=== PATIENT | male | born 1960 | race Caucasian/White ===

== ENCOUNTER 2016-12-30 21:07 | Observation (INO) | payer OTHER ==
[~2016-12-30] VITALS: Ht 170.2 cm; Wt 79.7 kg
[~2016-12-30 21:07] MED LIST: ALBUTEROL SULF8.5 GM IH; ASCORBIC ACID500 M3 PO; ASPIR-LOW81 MG PO; ASPIRIN81 M1 PO; ATROVENT 00.5 MG/2.5 IH; Ascorbic Acid PO; BACTRIM,SEPT1 TABLET PO; CLEOCIN HCL300 MG PO; CLEOCIN300 MG PO; EFFEXOR25 MG PO; EFFIENT10 MG PO; Effient PO; JANUVIA25 M1 PO; KEFLEX500 MG PO; LISINOPRIL20 MG PO; LOPRESSOR50 MG PO; Lopressor PO; METHOCARBAMOL500 MG PO; MOBIC7.5 MG PO; MORGIDOX100 MG PO; MULTI VITAMIN1 EACH PO; MUPIROCIN15 GM TP; NABUMETONE500 MG PO; NAPROXEN500 MG PO; NIACIN 500 MG1 EACH PO; NIACIN ER500 MG PO; NIACIN500 M1 PO; NITROGLYCERIN0.4 MG SL; NITROSTAT0.4 MG SL; Naprosyn PO; Nitrostat,NitroQuick SL; PANTOPRAZOLE SO40 MG PO; PERCOCET 5/31 TABLET PO; PREDNISONE20 MG PO; PRILOSEC40 MG PO; PRINIVIL20 MG PO; PROTONIX40 MG PO; PROVENTIL,2.5 MG/3 M IH; Protonix PO; Proventil,Ventolin H IH; ROBITUSSIN AC,T10 ML PO; SIMVASTATIN20 MG PO; SIMVASTATIN80 MG PO; ST. JOSEPH ASPI81 MG PO; TESSALON PERLE100 MG PO; TRADJENTA5 MG PO; TRAMADOL HCL50 MG PO; TRIAMCINOLONE A15 GM TP; ULTRAM50 MG PO; VENTOLIN HFA18 GM IH; VITAMIN C PO; ZESTRIL,PRINIVI20 MG PO; ZESTRIL20 MG PO; ZESTRIL5 MG PO; ZITHROMAX Z-PA250 MG PO; ZITHROMAX250 MG PO; ZITHROMAX500 MG PO; ZOCOR40 MG PO; ZOCOR80 MG PO; ZOFRAN4 MG PO; Zocor PO
[2016-12-30 22:39] LABS: EOSINOPHIL (%) 1.7 % (0-5); EOSINOPHIL COUNT 0.2 K/uL (0-0.3); HEMATOCRIT 48.1 % (38.0-50.0); IMMATURE GRANULOCYTE (%) 0.5 % (0.0-0.7); IMMATURE GRANULOCYTE COUNT 0.1 K/uL; INSTRUMENT ABS NEUTROPHIL CT 6.2 K/uL; MCH 32.5 PG (29.0-34.0); MCHC 34.1 G/DL (30.0-36.0); MCV 95.2 FL (86-99); MEAN PLAT.VOLUME 10.8 uM^3 (9.0-12.4); MONOCYTE COUNT 0.8 K/uL (0-0.8); NEUTROPHIL (%) 66.6 % (45-76); NEUTROPHIL COUNT 6.2 K/uL (1.8-6.4); PLATELET COUNT 159 K/uL (156-360); RBC DIS.WIDTH-CV 12.4 % (11.8-14.6); RBC DIS.WIDTH-SD 43.4 % (39-53); RED BLOOD COUNT 5.05 M/uL (4.00-5.50); WHITE BLOOD COUNT 9.3 K/uL (4.1-10.2)
[2016-12-30 22:47] LABS: CHLORIDE 105 mEq/L (99-109); POTASSIUM 4.1 mEq/L (3.7-5.4); SODIUM 138 mEq/L (136-147)
[2016-12-30 22:49] LABS: GLUCOSE 117 mg/dL (70-99)
[2016-12-30 22:50] LABS: ANION GAP 8 MEQ/L (2-14)
[2016-12-30 22:52] LABS: GFR ESTIMATE (CALCULATED) > 59 mL/min/
[2016-12-30 22:53] LABS: UREA NITROGEN (BUN) 20 mg/dL (9-23)
[2016-12-30 22:59] LABS: TROP-I INTERPRETATION NEGATIVE; TROPONIN-I 0.01 ng/mL (0.0-0.30)
[2016-12-31] MEDS ORDERED: JARDIANCE25 MG PO (00:01)
[2016-12-31 01:34] VITALS: BP 133/83
[2016-12-31 04:52] VITALS: BP 153/80
[2016-12-31 05:59] LABS: TROP-I INTERPRETATION NEGATIVE; TROPONIN-I 0.02 ng/mL (0.0-0.30)
[2016-12-31 07:07] LABS: Estimated Average Glucose 240 mg/dL (70-123)
[2016-12-31 08:41] VITALS: BP 144/83
[2016-12-31] MEDS ORDERED: PROTONIX40 MG PO (11:04)
[2016-12-31 12:12] LABS: TROP-I INTERPRETATION NEGATIVE; TROPONIN-I 0.02 ng/mL (0.0-0.30)
== END 2016-12-31 12:42 | disposition home or self-care (01) ==
LOC: EME 21:07 → ENPENDDIS 12-31 → EDOF 12-31 00:21 → ENRESERV 12-31 00:23 → 5WEST 12-31 01:29
PROVIDERS: Emergency Medicine; Hospitalist
DX: R07.9 Chest pain, unspecified (principal); E11.65 Type 2 diabetes mellitus with hyperglycemia; I71.2 Thoracic aortic aneurysm, without rupture; I10 Essential (primary) hypertension; I25.10 Atherosclerotic heart disease of native coronary artery without angina pectoris; Z95.5 Presence of coronary angioplasty implant and graft; E78.5 Hyperlipidemia, unspecified; Q23.1 Congenital insufficiency of aortic valve; J44.9 Chronic obstructive pulmonary disease, unspecified; K21.9 Gastro-esophageal reflux disease without esophagitis; F41.9 Anxiety disorder, unspecified; F32.9 Major depressive disorder, single episode, unspecified; Z87.891 Personal history of nicotine dependence; Z79.82 Long term (current) use of aspirin; Z82.49 Family history of ischemic heart disease and other diseases of the circulatory system; Z83.3 Family history of diabetes mellitus; Z88.0 Allergy status to penicillin
CPT/HCPCS: 71020; 80048; 82948; 83036; 84484; 85025; 93005; 93306; 99281; 99285; G0378

== ENCOUNTER 2017-07-26 19:07 | Emergency (ER) | payer OTHER ==
[~2017-07-26] VITALS: Ht 170.2 cm; Wt 82.1 kg
[~2017-07-26 19:07] MED LIST changes: +JARDIANCE25 MG PO
[2017-07-26 20:00] LABS: HEMATOCRIT 48.4 % (38.0-50.0); HEMOGLOBIN 17.2 G/DL (12.5-16.6); MCH 33.9 PG (29.0-34.0); MCHC 35.5 G/DL (30.0-36.0); MCV 95.5 FL (86-99); PLATELET COUNT 134 K/uL (156-360); RBC DIS.WIDTH-CV 12.4 % (11.8-14.6); RBC DIS.WIDTH-SD 43.8 % (39-53); RED BLOOD COUNT 5.07 M/uL (4.00-5.50); WHITE BLOOD COUNT 13.1 K/uL (4.1-10.2)
[2017-07-26 20:15] LABS: CHLORIDE 104 mEq/L (99-109); POTASSIUM 4.1 mEq/L (3.7-5.4); SODIUM 138 mEq/L (136-147)
[2017-07-26 20:17] LABS: GLUCOSE 152 mg/dL (70-99)
[2017-07-26 20:21] LABS: GFR ESTIMATE (CALCULATED) > 59 mL/min/ (58.99-99999)
[2017-07-26 20:22] LABS: UREA NITROGEN (BUN) 17 mg/dL (9-23)
[2017-07-26 20:27] LABS: TROP-I INTERPRETATION NEGATIVE; TROPONIN-I 0.03 ng/mL (0.0-0.30)
[2017-07-26] MEDS ORDERED: ZITHROMAX250 MG PO (20:31)
[2017-07-26 21:38] VITALS: BP 137/90
== END 2017-07-26 21:39 | disposition home or self-care (01) ==
LOC: EME 19:07
PROVIDERS: Emergency Medicine
DX: J44.0 Chronic obstructive pulmonary disease with (acute) lower respiratory infection (principal); J20.9 Acute bronchitis, unspecified; R94.31 Abnormal electrocardiogram [ECG] [EKG]; E11.9 Type 2 diabetes mellitus without complications; I10 Essential (primary) hypertension; K21.9 Gastro-esophageal reflux disease without esophagitis; E78.5 Hyperlipidemia, unspecified; Z79.82 Long term (current) use of aspirin; Z79.84 Long term (current) use of oral hypoglycemic drugs; Z87.891 Personal history of nicotine dependence; Z95.5 Presence of coronary angioplasty implant and graft; Z86.79 Personal history of other diseases of the circulatory system; Z88.0 Allergy status to penicillin
CPT/HCPCS: 71046; 80048; 84484; 85027; 93005; 99281; 99284; J1885